=== PATIENT | male | born 1995 | race African-American/Black ===

== ENCOUNTER 2016-11-03 01:46 | Emergency (ER) | payer OTHER ==
[~2016-11-03] VITALS: Ht 180.3 cm; Wt 120.2 kg
[2016-11-03 02:04] LABS: HEMATOCRIT 41.7 % (42.0-52.0); HEMOGLOBIN 14.2 gm/dL (14.0-18.0); MCH 30.2 pg (26.0-34.0); MCHC 34.1 g/dL (28.0-37.0); MCV 88.6 fL (80.0-100.0); PLATELET COUNT 348 thou/uL (150-400); RBC 4.71 mil/uL (4.50-6.00); RDW 12.6 % (10.5-14.5); WBC 13.9 thou/uL (4.0-11.0)
[2016-11-03 02:05] LABS: MANUAL DIFF YES
[2016-11-03 02:12] LABS: ANION GAP 11 mmol/L (7-16); BUN 11 mg/dL (7-18); CALCIUM 8.4 mg/dL (8.5-10.1); CHLORIDE 105 mmol/L (98-107); CO2 22 mmol/L (21-32); CREATININE 1.1 mg/dL (0.7-1.3); GLUCOSE 143 mg/dL (74-106); POTASSIUM 3.4 mmol/L (3.5-5.1); SODIUM 138 mmol/L (136-145)
[2016-11-03 02:19] LABS: ALBUMIN 3.8 g/dL (3.4-5.0); ALKALINE PHOSPHATASE 89 U/L (46-116); DIRECT BILIRUBIN < 0.1 mg/dL (<0.1-0.3); SGOT 23 U/L (15-37); SGPT 20 U/L (30-65); TOTAL BILIRUBIN 0.4 mg/dL (<0.1-1.0); TOTAL PROTEIN 7.8 g/dL (6.4-8.2)
[2016-11-03 04:14] LABS: TOTAL CELL COUNT 100
[2016-11-03 04:30] VITALS: BP 156/97
== END 2016-11-03 04:41 | disposition short-term general hospital (02) ==
LOC: ER 01:46
PROVIDERS: Emergency Medicine
DX: S21.102A Unspecified open wound of left front wall of thorax without penetration into thoracic cavity, initial encounter (principal); X95.9XXA Assault by unspecified firearm discharge, initial encounter; Y93.89 Activity, other specified; Y92.810 Car as the place of occurrence of the external cause; Y99.8 Other external cause status